=== PATIENT | female | born 1990 | race Caucasian/White ===

== ENCOUNTER 2016-12-21 17:14 | Outpatient (CLI) | payer OTHER | END 2016-12-21 17:15 | disposition home or self-care (01) | LOC: LAB 17:14 | PROVIDERS: ATTEND Obstetrics & Gynecology | DX: N91.1 Secondary amenorrhea (principal) | CPT/HCPCS: 84703 ==

== ENCOUNTER 2017-06-21 17:37 | Outpatient (CLI) | payer OTHER | END 2017-06-21 17:38 | disposition short-term general hospital (02) | LOC: EMS 17:37 | PROVIDERS: ATTEND Surgery | DX: O60.03 Preterm labor without delivery, third trimester (principal); Z3A.32 32 weeks gestation of pregnancy | CPT/HCPCS: A0170; A0425; A0426 ==

== ENCOUNTER 2017-07-03 15:19 | Outpatient (CLI) | payer OTHER | END 2017-07-03 15:20 | disposition short-term general hospital (02) | LOC: EMS 15:19 | PROVIDERS: ATTEND Surgery | DX: O60.03 Preterm labor without delivery, third trimester (principal); Z3A.33 33 weeks gestation of pregnancy | CPT/HCPCS: A0170; A0425; A0426 ==

== ENCOUNTER 2018-03-16 09:33 | Observation (INO) | payer OTHER ==
--- NOTE | 2018-03-16 10:48 | ED Physician Documentation ---
PD HPI ABD PAIN - Stated complaint Stated Complaint: ABD PX/VOMITING - Chief complaint Chief Complaint: Abd Pain - History obtained from History obtained from: Patient - History of Present Illness Timing - onset: Last night Timing - duration: Days (1/2) Timing - details: Abrupt onset, Still present Quality: Aching, Sharp, Pain Location: Epigastric, LUQ Radiation: No: Lower back, Upper back Improved by: No: Vomiting Worsened by: Eating, Position, Palpation. No: Breathing Associated symptoms: Nausea, Vomiting, Diarrhea (She has a history of chronic constipation for which she takes significant stool softeners. This leads to a regular soft to watery stool on an ongoing basis. She has not noticed any blood nor melena to it.). No: Fever Similar symptoms before: Diagnosis (Ulcers in the past with similar area and character of the pain) Recently seen: Not recently seen Review of Systems Constitutional: denies: Fever, Chills, Myalgias Nose: denies: Rhinorrhea / runny nose, Congestion Throat: denies: Sore throat Cardiac: denies: Chest pain / pressure Respiratory: denies: Cough GI: reports: Abdominal Pain, Nausea, Vomiting, Diarrhea. denies: Abdominal Swelling, Hematemesis, Bloody / black stool : denies: Dysuria, Frequency Neurologic: reports: Generalized weakness. 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 : None Psych: Depression, Anxiety Musculoskeletal: None - Past Surgical History Past Surgical History: Yes General: Cholecystectomy - Present Medications Home Medications: Ambulatory Orders Medication Instructions Recorded Confirmed Azithromycin [Zithromax] 250 mg PO DAILY #6 tablet 04/21/16 Sucralfate 1 gm PO ACHS #120 tablet 04/21/16 raNITIdine [Zantac] 150 mg PO BID #60 tablet 04/21/16 - Allergies Allergies/Adverse Reactions: Allergies Allergy/AdvReac Type Severity Reaction Status Date / Time No Known Drug Allergies Allergy Verified 03/16/18 09:38 - Living Situation Living Situation: reports: With family Living Arrangement: reports: At home - Social History Does the pt smoke?: No Smoking Status: Never smoker Does the pt drink ETOH?: No Does the pt have substance abuse?: No - Family History Family history: reports: Non contributory - Immunizations Immunizations are current?: Yes PD ED PE NORMAL - Vitals Vital signs reviewed: Yes - General General: Alert and oriented X 3, Well developed/nourished, Other (appears in considerable pain. ) - HEENT HEENT: Pharynx benign. No: Moist mucous membranes - Neck Neck: Supple, no meningeal sign, No adenopathy - Cardiac Cardiac: No murmur. No: RRR (tachycardic) - Respiratory Respiratory: Clear bilaterally - Abdomen Abdomen: Soft, Non distended, No organomegaly, Other (marked tender in epigastric area. ). No: Normal bowel sounds (diminished) - Female Female : Deferred - Rectal Rectal: Deferred - Back Back: No CVA TTP - Derm Derm: Normal color, No rash - Extremities Extremities: No deformity, No tenderness to palpate, Normal ROM s pain - Neuro Neuro: Alert and oriented X 3, No motor deficit, Normal speech Eye Opening: Spontaneous Motor: Obeys Commands Verbal: Oriented GCS Score: 15 - Psych Psych: Normal mood, Normal affect Results - Vitals Vitals: Vital Signs - 24 hr 03/16/18 03/16/18 03/16/18 09:36 12:59 14:13 Temperature 36.4 C L Heart Rate 105 H 101 H 84 Respiratory 15 20 18 Rate Blood Pressure 126/63 113/54 L 121/61 O2 Saturation 97 99 100 Oxygen O2 Source Room air - Labs Labs: Laboratory Tests 03/16/18 03/16/18 03/16/18 09:45 09:45 09:45 WBC 8.1 RBC 4.71 Hgb 13.0 Hct 39.0 MCV 82.9 MCH 27.5 MCHC 33.2 RDW 13.8 Plt Count 231 MPV 10.5 Neut # (Auto) 5.7 Lymph # (Auto) 1.6 [place] # (Auto) 0.6 Eos # (Auto) 0.1 Baso # (Auto) 0.0 Absolute Nucleated RBC 0.00 Nucleated RBC % 0.0 Sodium 137 Potassium 4.3 Chloride 98 L Carbon Dioxide 28 Anion Gap 11.0 BUN 12 Creatinine 0.5 Estimated GFR (MDRD) 148 Glucose 105 H Calcium 9.5 Total Bilirubin 0.8 AST 29 ALT 25 Alkaline Phosphatase 75 Total Protein 8.4 H Albumin 5.2 Globulin 3.2 Albumin/Globulin Ratio 1.6 Lipase 25 Urine Color YELLOW Urine Clarity CLEAR Urine pH 7.0 Ur Specific Rowe 1.010 Urine Protein NEGATIVE Urine Glucose (UA) NEGATIVE Urine Ketones NEGATIVE Urine Occult Blood NEGATIVE Urine Nitrite NEGATIVE Urine Bilirubin NEGATIVE Urine Urobilinogen 0.2 (NORMAL) Ur Leukocyte Esterase NEGATIVE Ur Microscopic Review NOT INDICATED Urine Culture Comments NOT INDICATED Urine HCG, Qual NEGATIVE PD MEDICAL DECISION MAKING - ED course Complexity details: reviewed old records, reviewed results, re-evaluated patient (The patient has taken repeated doses of antiemetic and pain medicines for comfort. She did not get any relief from GI cocktail nor sucralfate. Initial approach was that of treating ulcer exacerbation. However with the intractability, I did do a CT scan which revealed an actual area of colitis around some diverticulum but no obvious diverticulitis. We will start anti- inflammatories and antibiotics for this. The radiologist impression was that of an infectious cause and did not have a region to suggest ischemic. Given the intractability of the pain and nausea with vomiting, I talked with the hospitalist who agreed to put the patient in the hospital for ongoing treatment.), considered differential, d/w patient Departure - Departure Disposition: ED Place in Observation Clinical Impression: Upper abdominal pain, Acute colitis, Intractable abdominal pain Vomiting Qualifiers: Vomiting type: unspecified Vomiting Intractability: intractable Nausea presence: with nausea Qualified Code(s): R11.2 - Nausea with vomiting, unspecified Condition: Stable Record reviewed to determine appropriate education?: Yes
[2018-03-16] MEDS ORDERED: SODIUM CHLORIDE 0.9% 1,000 ML IV ONE ×2 (11:34→12:52)
[2018-03-16] MEDS ORDERED: MORPHINE 10 MG/ML VIAL IVP STA (11:34)
[2018-03-16] MEDS ORDERED: ONDANSETRON 4 MG/2 ML VIAL IVP STA ×2 (11:34→13:20)
[2018-03-16] MEDS ORDERED: LIDOCAINE VISCOUS 2% 15 ML UDC MM STA (11:34)
[2018-03-16] MEDS ORDERED: MAG HYDROX/AL HYDROX/SIMETH 30 ML UDC PO STA (11:34)
[2018-03-16] MEDS ORDERED: FAMOTIDINE 20 MG/2 ML VIAL IVP STA (11:35)
[2018-03-16 11:48] LABS: BILIRUBIN,URINE NEGATIVE (NEGATIVE); GLUCOSE, URINE (UA) NEGATIVE (NEGATIVE); KETONES,URINE (UA) NEGATIVE (NEGATIVE); LEUKOCYTE ESTERASE, URINE NEGATIVE (NEGATIVE); NITRITE,URINE NEGATIVE (NEGATIVE); OCCULT BLOOD,URINE NEGATIVE (NEGATIVE); PROTEIN,URINE NEGATIVE (NEGATIVE); UROBILINOGEN,URINE 0.2 (NORMAL) E.U./dL (NORMAL)
[2018-03-16 11:54] LABS: ALBUMIN 5.2 g/dL (3.2-5.5); ALBUMIN/GLOBULIN RATIO 1.6 (1.0-2.2); BILIRUBIN,TOTAL 0.8 mg/dL (0.2-1.0); CALCIUM 9.5 mg/dL (8.5-10.3); CREATININE 0.5 mg/dL (0.4-1.0); TOTAL PROTEIN 8.4 g/dL (6.7-8.2)
[2018-03-16 11:55] LABS: CLARITY,URINE CLEAR (CLEAR); HCG UR QUAL NEGATIVE
[2018-03-16 12:00] LABS: BASOPHILS % (AUTO) 0.4 %; EOSINOPHILS # (AUTO) 0.1 10^3/uL (0.0-0.7); EOSINOPHILS % (AUTO) 1.5 %; LYMPHOCYTES # (AUTO) 1.6 10^3/uL (1.5-3.5); LYMPHOCYTES % (AUTO) 20.3 %; MEAN CORPUSCULAR HEMOGLOBIN 27.5 pg (27.0-31.0); MEAN CORPUSCULAR HGB CONC 33.2 g/dL (32.0-36.0); MEAN CORPUSCULAR VOLUME 82.9 fL (81.0-99.0); MEAN PLATELET VOLUME 10.5 fL (7.9-10.8); MONOCYTES # (AUTO) 0.6 10^3/uL (0.0-1.0); MONOCYTES % (AUTO) 7.2 %; NEUTROPHILS # (AUTO) 5.7 10^3/uL (1.5-6.6); NEUTROPHILS % (AUTO) 70.6 %; PLT - PLATELET COUNT 231 10^3/uL (130-450); RED BLOOD COUNT 4.71 10^6/uL (4.20-5.40); RED CELL DISTRIBUTION WIDTH 13.8 % (12.0-15.0); WHITE BLOOD COUNT 8.1 x10^3/uL (4.8-10.8)
[2018-03-16] MEDS ORDERED: HYDROmorphone 2 MG/ML VIAL IVP STA ×2 (12:51→15:15)
[2018-03-16] MEDS ORDERED: SUCRALFATE 1 GM/10 ML UDC PO STA (12:52)
[2018-03-16] MEDS ORDERED: HYDROmorphone 1 MG/ML CARPUJECT IVP STA ×2 (13:27→13:52)
[2018-03-16] MEDS ORDERED: IOPAMIDOL-300 100 ML VIAL ONE (13:52)
[2018-03-16] MEDS ORDERED: IOPAMIDOL-300 100 ML VIAL IVP ONE (14:07)
--- NOTE | 2018-03-16 14:17 | CT Report ---
Reason: upper abd pain, severe Procedure Date: 03/16/2018 Accession Number: [id number] / [id number] Procedure: CT - Abdomen/Pelvis W/ CPT Code: FULL RESULT: EXAM: CT ABDOMEN AND PELVIS EXAM DATE: 03/16/2018 02:00 PM. CLINICAL HISTORY: Upper abdominal pain, severe. COMPARISONS: None. TECHNIQUE: Routine helical CT imaging was performed through the abdomen and pelvis. IV contrast: ISOVUE 300 100 mL. Enteric contrast: No. Reconstructions: Coronal and sagittal. In accordance with CT protocol optimization, one or more of the following dose reduction techniques were utilized for this exam: automated exposure control, adjustment of mA and/or KV based on patient size, or use of iterative reconstructive technique. FINDINGS: Lung Bases: Unremarkable. Liver: Normal. No masses. Gallbladder/Bile Ducts: Status post cholecystectomy. Spleen: Normal. Pancreas: Normal. Adrenal Glands: Normal. Kidneys: Normal. No masses or hydronephrosis. Peritoneal Cavity/Bowel: Diverticulosis without focal diverticulitis. There is induration of the mesenteric vasculature with haziness of the mesenteric fat, so-called shae mesentery. Similarly, there is subtle segmental thickening of the colon at the splenic flexure as well as just inferior to the hepatic flexure with nearby engorgement of the vascular arcades. Findings are accompanied by a few prominent mesenteric lymph nodes. No free fluid, free air or yi lymphadenopathy. No masses or acute inflammatory process. The appendix is well visualized and normal. Pelvic Organs: Bladder is markedly distended. Vasculature: No aneurysms or other significant abnormality. Bones: No significant abnormality. Other: None. IMPRESSION: Nonspecific finding of engorgement of mesenteric vasculature and subtle nonspecific focal thickening of the colon in noncontinuous segments as described. In conjunction with the mesenteric lymph nodes, this most likely represents an infectious mesenteritis/enteritis spectrum, less likely inflammatory. The distribution is not felt to be consistent with vascular etiology. RADIA
[2018-03-16] MEDS ORDERED: ACETAMINOPHEN 325 MG TABLET PO PRN (14:49)
[2018-03-16] MEDS ORDERED: ONDANSETRON ODT 4 MG TABLET TL PRN (14:49)
[2018-03-16] MEDS ORDERED: ONDANSETRON 4 MG/2 ML VIAL IVP PRN (14:49)
[2018-03-16] MEDS ORDERED: HYDROmorphone 1 MG/ML CARPUJECT IVP PRN (14:49)
[2018-03-16] MEDS ORDERED: PROCHLORPERAZINE 10 MG/2 ML VIAL IVP PRN (14:49)
[2018-03-16] MEDS ORDERED: oxyCODONE 5 MG TABLET PO PRN (14:49)
[2018-03-16] MEDS ORDERED: SODIUM CHLORIDE FLUSH 0.9% 10 ML SYRINGE IVP PRN (14:49)
[2018-03-16] MEDS ORDERED: metroNIDAZOLE 500 MG/100 ML 500 MG/100 ML BAG IV ONE (15:15)
[2018-03-16] MEDS ORDERED: DEXAMETHASONE 10 MG/ML VIAL IVP STA (15:15)
--- NOTE | 2018-03-16 15:53 | HISTORY & PHYSICAL EXAMINATION ---
Chief Complaint - Chief Complaint Chief Complaint: Acute onset generalized abdominal pain since yesterday History of Present Illness - Admitted From Admitted From:: Home/ER - History Obtained From Records Reviewed: Shena Keller MIN-NS History obtained from: patient and Dr. Rouse Exam Limitations: none - History of Present Illness HPI Comment/Other: She is a 27-year-old white female whose previous abdominal history consist of chronic epigastric abdominal pain, cholecystectomy with phantom gallbladder pain after that, intermittent chest pain, and a hysterectomy as her most recent surgery September 2017. She now presents with a half a day of abrupt onset of generalized epigastric and left upper quadrant pain. It is sharp, stabbing, but can also be crampy and deeply aching. Eating makes it worse. Trying to sit up and walk makes it worse. It is associated with nausea, vomiting and diarrhea. She is a chronic constipation problem for which she takes lots of stool softeners. She has had an EGD in December 2013 which was negative. There is no record of a colonoscopy being done. When she gets severely constipated it then becomes soft to watery stool. There is no blood or blackness to it right now. She was evaluated by Dr. Rouse in the emergency room where she was afebrile, tachycardic to 105. But normotensive and oxygenating well. She had severe epigastric and left upper quadrant pain with palpation. No rebound or guarding. White cell count was normal. CT the abdomen showed haziness of the mesenteric vasculature and of the mesenteric fat. Subtle some segmental thickening of the colon at the splenic flexure as well as just inferior to the hepatic flexure with nearby engorgement of the vascular arcades. There was also a few prominent mesenteric lymph nodes. With these nonspecific findings of engorgement of mesenteric vasculature and subtle nonspecific focal thickening of the colon and then continuous segments as described, this most likely represents an infectious mesenteric enteritis/enteritis spectrum. Distribution is not felt to be consistent with vascular etiology. The patient is received 3 doses of Dilaudid, a dose of morphine, antiemetics, IV fluids. Her pain is uncontrolled. As such she is being placed in observation for control of pain. History - Past Medical History Cardiovascular: reports: Other (Atypical chest pain in the past. CT angiogram April 2016 showed left lower lobe pneumonia. POTs syndrome. ) Respiratory: reports: Pneumonia Neuro: reports: Headaches GI: reports: Ulcers (Remote history of duodenal ulcer in the past. 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 Dad has some type of clotting disorder. Mom is healthy. 4 sisters and one brother are healthy. No clotting disorder. 4 children are healthy Living arrangement: At home Living Situation: With family Social History Notes: She is socially smoked until her last . She smoked maybe 1 cigarette a week for the last 2 years. She drinks maybe 1 drink a year. She is . is in the [employer]. He has been recently d eployed. 4 children at home. She is getting her dad and grandmother come help her. 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 She has not worked outside the home. She denies any recreational substance abuse history. - Substance History Use: Uses substance without health or social issues: NONE Abuse: Recurrent use of substance despite neg consequences: NONE Dependence: Experiences withdrawal or developed tolerances: NONE - POLST Patient has POLST: No POLST Status: Full Code Meds/Allgy - Home Medications Home Medications: Ambulatory Orders Medication Instructions Recorded Confirmed Azithromycin [Zithromax] 250 mg PO DAILY #6 tablet 04/21/16 Sucralfate 1 gm PO ACHS #120 tablet 04/21/16 raNITIdine [Zantac] 150 mg PO BID #60 tablet 04/21/16 - Allergies Allergies/Adverse Reactions: Allergies Allergy/AdvReac Type Severity Reaction Status Date / Time No Known Drug Allergies Allergy Verified 03/16/18 09:38 Review of Systems - Constitutional Constitutional: reports: Night sweats (last week once). denies: Fatigue, Fever, Chills, Malaise, Weakness, Poor appetite, Diaphoresis - Eyes Eyes: denies: Pain, Irritation, Amaurosis, Blurred vision, Field loss - Ears, Nose & Throat Ears, Nose & Throat: denies: Ear pain, Vertigo, Nasal obstruction, Nasal congestion, Postnasal drainage, Dentures, Sore throat, Hoarseness - Cardiovascular Cariovascular: reports: Chest pain (it the past, not now), Lightheadedness. denies: Irregular heart rate, Palpitations, Syncope, Exertional dyspnea, Decr. exercise tolerance - Respiratory Respiratory: denies: Cough, Sputum production, Wheezing, Snoring, Orthopnea, SOB at rest - Gastrointestinal Gastrointestinal: reports: Abdominal pain, Constipation. 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 Her most recent baby was in July 2017. She is able to do all of her activities of daily living, drives a car, clean house, pay bills. No use of durable medical goods for mobility. Exam - Vital Signs Reviewed Vital Signs: Yes Vital Signs: Vital Signs x48h Temp Pulse Resp BP Pulse Ox 03/16/18 14:13 84 18 121/61 100 03/16/18 12:59 101 H 20 113/54 L 99 03/16/18 09:36 36.4 C L 105 H 15 126/63 97 - Physical Exam General Appearance: positive: No acute distress, Alert Eyes Bilateral: positive: PERRL, EOMI ENT: positive: Pharynx nml Neck: positive: No JVD. negative: Stiff neck, Carotid bruit Respiratory: positive: Chest non-tender. negative: Wheezes, Rales, Rhonchi Cardiovascular: positive: Regular rate & rhythm. negative: Systolic murmur, Gallop/S4, Friction rub Peripheral Pulses: positive: 1+ Abdomen: positive: No organomegaly, Nml bowel sounds, No distention, Tenderness (LUQ mild). negative: Guarding, Rebound Skin: positive: Warm, Dry Extremities: positive: Non-tender, Full ROM Neurologic/Psychiatric: positive: Oriented x3, CN's nml (2-12), Motor nml Conclusion/Plan - Problem List (1) Mesenteric adenitis Conclusion/Plan: Presenting as intractable abdominal pain. Started last night. Associate with nausea vomiting. There is no fever, no elevated white cell count, but CT is abnormal.After being transferred from the ER to the floor, she is comfortable. I anticipate her staying only overnight. Plan: Place in observation Symptomatic management of pain IV Dilaudid every 2 hours as needed Zofran as needed IV fluids for hydration (2) Bipolar disorder in remission Conclusion/Plan: Right now she says she is doing very well. The only thing was going on her life is sleep deprivation from being the mom of 4 kids and currently breast-feeding her youngest. She is anxious and stressed out because of her 's deployment but there is no severe anxiety, suicidal ideation or hallucinations Plan: Resume usual Zoloft in the morning - Lab Results Fish Bones: 03/16/18 09:45 03/16/18 09:45 - Diagnostic Imaging Results Diagnostic Imaging Results: positive: Final report reviewed Diagnostic Imaging Results Comments: EXAM: CT ABDOMEN AND PELVIS EXAM DATE: 03/16/2018 02:00 PM. CLINICAL HISTORY: Upper abdominal pain, severe. COMPARISONS: None. TECHNIQUE: Routine helical CT imaging was performed through the abdomen and pelvis. IV contrast: ISOVUE 300 100 mL. Enteric contrast: No. Reconstructions: Coronal and sagittal. In accordance with CT protocol optimization, one or more of the following dose reduction techniques were utilized for this exam: automated exposure control, adjustment of mA and/or KV based on patient size, or use of iterative reconstructive technique. FINDINGS: Lung Bases: Unremarkable. Liver: Normal. No masses. Gallbladder/Bile Ducts: Status post cholecystectomy. Spleen: Normal. Pancreas: Normal. Adrenal Glands: Normal. Kidneys: Normal. No masses or hydronephrosis. Peritoneal Cavity/Bowel: Diverticulosis without focal diverticulitis. There is induration of the mesenteric vasculature with haziness of the mesenteric fat, so-called shae mesentery. Similarly, there is subtle segmental thickening of the colon at the splenic flexure as well as just inferior to the hepatic flexure with nearby engorgement of the vascular arcades. Findings are accompanied by a few prominent mesenteric lymph nodes. No free fluid, free air or yi lymphadenopathy. No masses or acute inflammatory process. The appendix is well visualized and normal. Pelvic Organs: Bladder is markedly distended. Vasculature: No aneurysms or other significant abnormality. Bones: No significant abnormality. Other: None. IMPRESSION: Nonspecific finding of engorgement of mesenteric vasculature and subtle nonspecific focal thickening of the colon in noncontinuous segments as described. In conjunction with the mesenteric lymph nodes, this most likely represents an infectious mesenteritis/enteritis spectrum, less likely inflammatory. The distribution is not felt to be consistent with vascular etiology. Core Measures - Anticipated LOS I expect patient to be DC'd or transferred within 96 hours.: Yes - DVT/VTE - Prophylaxis VTE/DVT Device ordered at admit?: Yes
[2018-03-16] MEDS: SODIUM CHLORIDE 0.9% 1,000 ML IV SCH (18:12)
[2018-03-16] MEDS: SODIUM CHLORIDE FLUSH 0.9% 10 ML SYRINGE IVP SCH (18:12)
[2018-03-16] MEDS ORDERED: ALPRAZolam 0.25 MG TABLET PO PRN (18:54)
[2018-03-17] MEDS: SODIUM CHLORIDE FLUSH 0.9% 10 ML SYRINGE IVP SCH (03:24)
[2018-03-17] MEDS: SODIUM CHLORIDE 0.9% 1,000 ML IV SCH (04:01)
[2018-03-17 05:42] LABS: BASOPHILS % (AUTO) 0.5 %; EOSINOPHILS # (AUTO) 0.1 10^3/uL (0.0-0.7); EOSINOPHILS % (AUTO) 2.5 %; LYMPHOCYTES # (AUTO) 1.8 10^3/uL (1.5-3.5); LYMPHOCYTES % (AUTO) 31.6 %; MEAN CORPUSCULAR HEMOGLOBIN 27.6 pg (27.0-31.0); MEAN CORPUSCULAR VOLUME 83.7 fL (81.0-99.0); MONOCYTES # (AUTO) 0.5 10^3/uL (0.0-1.0); MONOCYTES % (AUTO) 8.5 %; NEUTROPHILS # (AUTO) 3.2 10^3/uL (1.5-6.6); NEUTROPHILS % (AUTO) 56.9 %; PLT - PLATELET COUNT 181 10^3/uL (130-450); RED BLOOD COUNT 4.34 10^6/uL (4.20-5.40); RED CELL DISTRIBUTION WIDTH 13.8 % (12.0-15.0); WHITE BLOOD COUNT 5.5 x10^3/uL (4.8-10.8)
[2018-03-17 05:51] LABS: CALCIUM 8.9 mg/dL (8.5-10.3); CREATININE 0.5 mg/dL (0.4-1.0)
[2018-03-17 07:48] VITALS: BP 106/56
--- NOTE | 2018-03-17 07:56 | Discharge Plan ---
Discharge Plan Disposition: 01 Home, Self Care Condition: Stable Diet: Regular Activity Restrictions: Activity as Tolerated Shower Restrictions: No Driving Restrictions: No Additional Instructions or Follow Up instructions: You were placed in observation because of severe abdominal pain. Your abdominal pain was not responding to medications in the emergency room and we thought that we would have to control the pain overnight with IV medication. You have done really well and not needed very many pills or medication. You have a condition called mesenteric adenitis. It is inflammation of the lymph glands around your bowel and most likely related to a viral infection. This condition is more common in children and adults but adults can get it. You do not have to do anything special to treated other than to take Tylenol or Motrin for pain. Try not to eat a high fatty diet. And it will resolve on its own. Please make an appointment to see your primary care provider in the next 2 weeks. They do not really have to do anything in follow-up for you. It is more for continuity of care so they know you are in the hospital and why you are in the hospital. No Smoking: If you smoke, Please STOP! Call for help. Follow-up with: MIKEY FAUSTIN [Physician No Access] -
[2018-03-17] MEDS ORDERED: POLYETHYLENE GLYCOL 3350 17 GM PACKET PO SCH (09:00)
--- NOTE | 2018-03-17 20:31 | DISCHARGE SUMMARY ---
Physician: Leny Higgins MD DATE OF ADMISSION: 03/16/2018 DATE OF DISCHARGE: 03/17/2018 DISCHARGE DIAGNOSES 1. Mesenteric adenitis. 2. Intractable abdominal pain. 3. Bipolar disorder, in remission. DISCHARGE MEDICATIONS: None. PRINCIPAL PROCEDURES: CT abdomen and pelvis with nonspecific finding of engorgement of the mesenteric vasculature and subtle nonspecific focal thickening of the colon in noncontinuous segments as described. In conjunction with the mesenteric lymph nodes, this most likely represents an infectious mesenteric versus enteritis spectrum, less likely inflammatory. The distribution is not felt to be consistent with vascular etiology. HOSPITAL COURSE: The patient is a 27-year-old female who has 4 young children at home. She has a 6-year history of abdominal pain with chronic epigastric pain that waxes and wanes. She feels this is a continuation of that pain. She has had a cholecystectomy with stent and gallbladder pain after that. She has intermittent chest pain, intermittent bilateral forearm pain after the delivery of her baby in July. She had a hysterectomy at her most recent surgery in September 2007. She presents with a half a day of abrupt onset of generalized epigastric and left upper quadrant pain. It is sharp and stabbing, can also be crampy and typically aching. Eating makes it worse. Trying to sit up and walk makes it worse. It is associated with nausea, vomiting, and diarrhea. She has a chronic constipation problem, for which she takes Linzess and many stool softeners. She has had an EGD in December 2013, which was negative. When she gets severely constipated, she then takes medications to then have diarrhea. Right now, there is no blackness to her stool, no change in the color. She was referred to see [facility] in October 2016; however, they never called her, so she has never had a visit to get a followup EGD or colonoscopy. She has also left her primary care practice in 2017. 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 She was evaluated by Dr. Rouse in the emergency room, where she was afebrile, tachycardic to 105, but normotensive and oxygenating well. She had severe, severe pain with no rebound or guarding. White cell count was normal. CT of the abdomen was as above, showing possible mesenteric adenitis. She received 3 doses of Dilaudid, a dose of morphine, antiemetics, and IV fluids. Dr. Rouse felt that her pain continued to be uncontrolled and as such requested that she be placed under observation for control of pain. By the time she got to the medical/surgical unit, pain was now a 5/10. She was awake, a little sleepy, but felt much better and felt the pain was now very well controlled. Overnight, the patient did not require any Dilaudid. She did not require Zofran, but did use Compazine, and she continued to receive normal saline. On the morning of discharge, she was comfortable, ate a full meal without any difficulty. Temperature was 37.2, pulse 77, blood pressure 106/56, respirations 16, 97% on room air. She is a tall, well-nourished, well-developed, young, white female. No acute distress. Supple neck. Clear lung exam. Regular rate and rhythm. Abdomen is still slightly achy in the epigastrium and left upper quadrant, but there is no rebound, no guarding, normal bowel sounds. She is discharged in stable condition. I have asked her to please follow up with her family practice clinic at the [facility], make sure they make that referral to [facility] to complete the workup for her abdominal pain that has been going on for 6 years, but of which there is no etiology found. TD: 03/17/2018 18:41 MTDD
== END 2018-03-17 08:38 | disposition home or self-care (01) ==
LOC: ED 09:33 → OBS 14:49
PROVIDERS: ADMIT Specialist; ATTEND Specialist
DX: I88.0 Nonspecific mesenteric lymphadenitis (principal); F31.70 Bipolar disorder, currently in remission, most recent episode unspecified; K59.09 Other constipation; F41.9 Anxiety disorder, unspecified; Z90.49 Acquired absence of other specified parts of digestive tract; Z87.01 Personal history of pneumonia (recurrent); Z87.891 Personal history of nicotine dependence; Z87.19 Personal history of other diseases of the digestive system
CPT/HCPCS: 36415; 74177; 80048; 80053; 81003; 81025; 83690; 85025; 85651; 86140; 96361; 96374; 96375; 99283; 99284; A9270; G0378; J1170; Q9967; 81001; 87086

== ENCOUNTER 2019-08-20 15:45 | Emergency (ER) | payer OTHER ==
[2019-08-20] MEDS ORDERED: IPRATROPIUM/ALBUTEROL 3 ML NEB INH STA (16:07)
[2019-08-20] MEDS ORDERED: IPRATROPIUM/ALBUTEROL 3 ML NEB INH ONE (16:10)
--- NOTE | 2019-08-20 16:11 | ED Physician Documentation ---
History of Present Illness - Stated complaint Stated Complaint: SOA/COUGH - History obtained from History obtained from: Patient - History of Present Illness Timing: Yesterday Pain level max: 0 Pain level now: 0 - Additonal information Additional information: 28-year-old female with a history of asthma presents to the emergency department with wheezing and coughing. This started yesterday. She has not been using her inhaler. Unsure if she has had fevers at home or not. Has not had any close contacts that are coronavirus positive. She is not , breast-feeding or trying to become . Review of Systems Ears: denies: Ear pain Nose: denies: Rhinorrhea / runny nose, Sinus pressure / pain Throat: denies: Sore throat Cardiac: denies: Chest pain / pressure Respiratory: reports: Dyspnea, Cough, Wheezing GI: denies: Abdominal Pain, Nausea, Vomiting, Diarrhea : denies: Dysuria, Now EGA Skin: denies: Rash Musculoskeletal: denies: Neck pain, Back pain Neurologic: denies: Headache PD PAST MEDICAL HISTORY - Past Medical History Past Medical History: Yes Cardiovascular: Other (Atypical chest pain in the past. CT angiogram April 2016 showed left lower lobe pneumonia. POTs syndrome. ) Respiratory: Pneumonia Neuro: Headaches GI: Ulcers (Remote history of duodenal ulcer in the past. 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: Other (Bilateral laparoscopic salpingectomies September 2017) - Present Medications Home Medications: Ambulatory Orders Medication Instructions Recorded Confirmed Azithromycin [Zithromax] 250 mg PO DAILY #6 tablet 04/21/16 Sucralfate 1 gm PO ACHS #120 tablet 04/21/16 raNITIdine [Zantac] 150 mg PO BID #60 tablet 04/21/16 Albuterol Sulfate [Proair Hfa 1 - 2 puffs INH Q4H PRN #1 inhaler 08/20/19 Inhaler] predniSONE [Deltasone] 10 mg PO [id number] #42 tab 08/20/19 - Allergies Allergies/Adverse Reactions: Allergies Allergy/AdvReac Type Severity Reaction Status Date / Time No Known Drug Allergies Allergy Verified 03/16/18 09:38 - Social History Does the pt smoke?: No Smoking Status: Never smoker Does the pt drink ETOH?: No Does the pt have substance abuse?: No - Immunizations Immunizations are current?: Yes - POLST Patient has POLST: No POLST Status: Full Code PD ED PE NORMAL - Vitals Vital signs reviewed: Yes - General General: Alert and oriented X 3, No acute distress, Well developed/nourished - HEENT HEENT: Moist mucous membranes - Neck Neck: Supple, no meningeal sign - Cardiac Cardiac: RRR, Strong equal pulses - Respiratory Respiratory: No respiratory distress, Other (Wheezing bilaterally.) - Abdomen Abdomen: Soft, Non tender, Non distended - Derm Derm: Warm and dry, No rash - Extremities Extremities: No edema - Neuro Neuro: Alert and oriented X 3 - Psych Psych: Normal mood, Normal affect Results - Vitals Vitals: Vital Signs - 24 hr 08/20/19 08/20/19 08/20/19 16:23 16:28 17:57 Temperature 36.9 C Heart Rate 81 80 96 Respiratory 24 24 22 Rate Blood Pressure 114/64 109/54 L O2 Saturation 100 100 08/20/19 18:56 Temperature 37 C Heart Rate 105 H Respiratory 20 Rate Blood Pressure 117/84 H O2 Saturation 100 Oxygen O2 Source Room air - Labs Labs: Laboratory Tests 08/20/19 08/20/19 16:20 16:20 WBC 7.6 RBC 4.69 Hgb 13.1 Hct 40.0 MCV 85.3 MCH 27.9 MCHC 32.8 RDW 13.4 Plt Count 218 MPV 11.6 H Neut # (Auto) 4.8 Lymph # (Auto) 2.1 [place] # (Auto) 0.5 Eos # (Auto) 0.1 Baso # (Auto) 0.1 Absolute Nucleated RBC 0.00 Nucleated RBC % 0.0 Sodium 133 L Potassium 3.6 Chloride 105 Carbon Dioxide 17 L Anion Gap 11.0 BUN 12 Creatinine 0.6 Estimated GFR (MDRD) 119 Glucose 88 Calcium 9.4 Total Bilirubin 0.9 AST 24 ALT 21 Alkaline Phosphatase 41 L Total Protein 7.9 Albumin 4.4 Globulin 3.5 Albumin/Globulin Ratio 1.3 - Rads (name of study) Chest x-ray Radiology: Prelim report reviewed, EMP read contemporaneously, See rad report (no acute abnormality) PD MEDICAL DECISION MAKING - ED course Complexity details: reviewed results, re-evaluated patient, considered differential, d/w patient ED course: Patient with what appears to be a viral URI with asthma exacerbation. Feels better after nebulizer treatments. Given steroids. Will place on a steroid taper for home. We will refill her albuterol as well. Patient is well- appearing, nontoxic. Afebrile. No hypoxia or respiratory distress. Patient counseled regarding signs and symptoms for which I believe and urgent re- evaluation would be necessary. Patient with good understanding of and agreement to plan and is comfortable going home at this time This document was made in part using voice recognition software. While efforts are made to proofread this document, sound alike and grammatical errors may occur. Departure - Departure Disposition: Home, Self Care Clinical Impression: Asthma exacerbation Qualifiers: Asthma severity: unspecified severity Asthma persistence: intermittent Qualified Code(s): J45.21 - Mild intermittent asthma with (acute) exacerbation Condition: Good Instructions: ED Reactive Airway Disease Follow-Up: your,doctor in 1 week [Other] Prescriptions: Albuterol Sulfate [Proair Hfa Inhaler] 1 - 2 puffs INH Q4H PRN #1 inhaler PRN Reason: Shortness Of Air/Wheezing predniSONE [Deltasone] 10 mg PO [id number] #42 tab Comments: Return if you worsen. Make sure you are using your inhaler with a spacer. Follow-up with your doctor for further care. Discharge Date/Time: 08/20/19 18:56
[2019-08-20 16:24] LABS: BASOPHILS # (AUTO) 0.1 10^3/uL (0.0-0.1); BASOPHILS % (AUTO) 0.7 %; EOSINOPHILS # (AUTO) 0.1 10^3/uL (0.0-0.7); EOSINOPHILS % (AUTO) 1.6 %; HGB - HEMOGLOBIN 13.1 g/dL (12.0-16.0); LYMPHOCYTES # (AUTO) 2.1 10^3/uL (1.5-3.5); LYMPHOCYTES % (AUTO) 28.1 %; MEAN CORPUSCULAR HEMOGLOBIN 27.9 pg (27.0-31.0); MEAN CORPUSCULAR HGB CONC 32.8 g/dL (32.0-36.0); MEAN CORPUSCULAR VOLUME 85.3 fL (81.0-99.0); MEAN PLATELET VOLUME 11.6 fL (7.9-10.8); MONOCYTES # (AUTO) 0.5 10^3/uL (0.0-1.0); MONOCYTES % (AUTO) 6.3 %; NEUTROPHILS # (AUTO) 4.8 10^3/uL (1.5-6.6); NEUTROPHILS % (AUTO) 62.9 %; PLT - PLATELET COUNT 218 10^3/uL (130-450); RED BLOOD COUNT 4.69 10^6/uL (4.20-5.40); RED CELL DISTRIBUTION WIDTH 13.4 % (12.0-15.0); WHITE BLOOD COUNT 7.6 x10^3/uL (4.8-10.8)
[2019-08-20 16:38] LABS: ALBUMIN 4.4 g/dL (3.2-5.5); ALBUMIN/GLOBULIN RATIO 1.3 (1.0-2.2); BILIRUBIN,TOTAL 0.9 mg/dL (0.2-1.0); CALCIUM 9.4 mg/dL (8.5-10.3); CREATININE 0.6 mg/dL (0.4-1.0); TOTAL PROTEIN 7.9 g/dL (6.7-8.2)
--- NOTE | 2019-08-20 16:41 | XRAY Report ---
Reason: cough, wheeze Procedure Date: 08/20/2019 Accession Number: [id number] / [id number] Procedure: XR - Chest 1 View X-Ray CPT Code: 95412 Final Report FULL RESULT: EXAM: CHEST RADIOGRAPHY EXAM DATE: 08/20/2019 04:33 PM. CLINICAL HISTORY: Cough, wheeze. COMPARISON: CHEST 2 VIEW PA/LAT 04/21/2016 12:36 PM. TECHNIQUE: 1 view. FINDINGS: Lungs/Pleura: No focal opacities evident. No pleural effusion. No pneumothorax. Mediastinum: Within exam limitations, the cardiomediastinal contour is normal. Other: None. IMPRESSION: No convincing acute cardiopulmonary abnormality. RADIA
[2019-08-20] MEDS ORDERED: ALBUTEROL NEB 2.5 MG/3 ML INH STA (16:48)
[2019-08-20] MEDS ORDERED: DEXAMETHASONE 10 MG/ML VIAL PO STA (16:48)
[2019-08-20] MEDS ORDERED: CHERRY SYRUP 10 ML UDC PO ONE (16:48)
[2019-08-20] MEDS ORDERED: ALBUTEROL NEB 2.5 MG/3 ML INH ONE (16:49)
[2019-08-20] MEDS ORDERED: MAGNESIUM SULFATE 2 GRAM 2 GM/50 ML BAG IV ONE (17:18)
[2019-08-20 18:59] VITALS: BP 117/84
== END 2019-08-20 18:56 | disposition home or self-care (01) ==
LOC: ED 15:45
DX: J45.21 Mild intermittent asthma with (acute) exacerbation (principal)
CPT/HCPCS: 36415; 71045; 80053; 81599; 85025; 94640; 96365; 99283; 99284; A9270